=== PATIENT | female | born 1960 | race Two or more races ===

== ENCOUNTER 2025-03-24 09:57 | Outpatient (AMB) | payer MEDICARE, SELFPAY ==
--- NOTE | 2025-03-24 10:09 | XR_ITS ---
Examination: Bilateral knees 2 views Right lateral knee left lateral knee 2 views Bilateral axial knees single view TECHNIQUE: Bilateral AP knees standing single view, bilateral PA knees standing single view flexion Standing right lateral knee left lateral knee 2 views Bilateral axial knees single view total 5 views Date and time: March 24, 2025 1034 hours INDICATIONS: Bilateral knee pain for years. FINDINGS: Advanced narrowing [id number] lateral joint space right knee Significant osteoarthritis right patellofemoral joint and medial joint space Advanced narrowing lateral joint space left knee Moderate to advanced osteoarthritis medial and right patellofemoral joints IMPRESSION: Significant bilateral osteoarthritis, including advanced narrowing [id number] lateral joint space right knee
--- NOTE | 2025-03-24 10:09 | ORTHONT_ITS ---
Vital signs 03/24/25 10:13 Height 1.57 m Height Method Measured Weight 85.417 kg Weight Measurement Method Standing Scale BMI 34.4 BP 116/76 Blood Pressure Source Automatic Cuff Blood Pressure Location Left Upper Arm Position Sitting Respiration 18 Pulse 74 Pulse Source Monitor Temp 97.8 F Temp Source Temporal Artery Scan Pulse Oximetry (%) 96 Oxygen Delivery Method Room Air Med/Allergies Allergies & Medications Allergies ranitidine Allergy (Verified 03/24/25 10:18) Difficulty Breathing Medication Reconciliation alendronate 70 mg tablet 70 mg PO QWEEK 06/23/24 [History Confirmed 03/24/25] meloxicam 7.5 mg tablet 7.5 mg PO QDAY #45 tabs 03/24/25 [Rx Confirmed 03/24/25] Exam Exam Patient is in no acute distress and is cooperative with the examination today. Breathing is nonlabored. In no respiratory distress. Bilateral extremities were evaluated and demonstrates sensation intact to light touch. Palpable pedal pulses are present. No significant edema is present. Bilateral hips were examined. The patient has no pain with log roll of the hips. Internal rotation to 30 degrees and external rotation to 30 degrees is painless. Negative FADIR. The left knee was examined. The left knee is in varus alignment. Range of motion from 0-115 degrees. Knee is stable to varus and valgus as well as AP translation with <5mm. Patient has a negative McMurrays. There is no pain with patellofemoral compression and no crepitus noted. The knee is tender to palpation medially. The right knee was also examined. The right knee is in varus alignment. Range of motion from 0-120 degrees. Knee is stable to varus and valgus as well as AP translation with <5mm. Patient has a negative McMurrays. There is no pain with patellofemoral compression and no crepitus noted. The knee is tender to palpation medially. Assessment and Plan Problem List (1) Degenerative arthritis of knee, bilateral: Status: Acute Plan: Patient is a 64-year-old female with bilateral knee pain and bilateral knee arthritis. We discussed different treatment options. I would like to get weightbearing x-rays. I sent her a prescription for meloxicam. We will see her back after he has weightbearing x-rays Advanced Care Planning Discussion Advance care planning discussed with:: patient Office Procedures GNS Level of Care Nursing/Assessment Patient Status: Initial/New Patient Nursing Assessment/Reassesment: Medication Reconciliation, Update PMH in EMR and Vital Signs Coordination of Care: Complex Care and Chronic Disease 1-5, Education Complex Pt/Fam, Consent,records obtained, informed consent, 1 Ins Authorization, Lab and Imaging orders, Results/Orders obtained and Staff clarify orders Special Needs: Language special needs New Patient Charge New Patient Point Assignment: 1124 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 Intake Visit Data Collection New Patient or Established: New Patient (never been to [facility]) Reason for Visit:: BL KNEE OA Seen by Clinical Staff ONLY (RN/MA): No Position Classification Specialist Required: Yes PCP or OBGYN visit in last 3 months: Yes Hx Now: No Do You Feel Safe at Home: Yes Authorities Contacted: N/A Questionairres Past Medical History Past Medical History Have you ever been diagnosed with any of the following: Neurological Problems Seizures: No Cardiology Problems Congestive Heart Failure: No Respiratory Problems Chronic Obstructive Pulmonary Disease (COPD): No Smoking: No Smoking Cessation Counseling: No Smoking Exposure: No Genital/Urinary Problems Renal Disease: No Musculoskeletal Problems Osteoporosis: Yes Endocrine Problems Diabetes Mellitus Type 1: No Blood Problems Anemia: No Other Problems Blood Transfusions: No Blood Transfusion Reaction: No Anesthesia Reactions: No Chicken Pox: Yes Measles: Yes Mumps: Yes Surgical History Hysterectomy: Yes Subjective Visit Visit for: new patient and knee (BILATERAL) Immunization / Flu Flu Vaccine in the Last 12 Months: Yes Flu Vaccine Exclusion Criteria: Already Received History of Present Illness Chief complaint: Bilateral knee pain Date of injury / onset of symptoms: 2-3 YEARS Patient is a pleasant 64-year-old female with bilateral knee pain worse on the right. She is not taking any anti-inflammatories. Has not any injections. The right knee pain is worse than the left and it is both medially and laterally Personal History Occupation: RETIRED Red flag PMH: none BMI Counceling provided: Yes Pain Pain level (0-10): 5 Pain duration: COMES AND GOES Pain location: inside (medial), outside (lateral) and anterior Pain quality: sharp and aching Pain timing: increases with activity Ambulatory data Ambulatory device: none Treatments Number of previous injections: 0 Improvement with previous injections: No Number of Physical Therapy sessions: 0 Improvement with PT: No Improvement with NSAIDS: no (IBUPROFEN) Review of Systems Review of Systems: All systems negative unless otherwise noted in HPI.
[2025-03-24 10:13] VITALS: BP 116/76; PULSE 74; RESP 18; TEMP 36.6; O2SAT 96; BMI 34.4
== END 2025-03-24 10:14 | disposition home or self-care (01) ==
LOC: HODSRG 09:57
PROVIDERS: PCP Family Medicine; Referring Provider Family Medicine; Supervising Provider Orthopaedic Surgery Adult Reconstructive Orthopaedic Surgery; Visit Provider Orthopaedic Surgery Adult Reconstructive Orthopaedic Surgery
DX: M17.0 Bilateral primary osteoarthritis of knee (principal); M25.562 Pain in left knee; M25.561 Pain in right knee
CPT/HCPCS: 73564; 99204; G0463

== ENCOUNTER 2025-04-26 09:23 | Outpatient (AMB) | payer MEDICARE, SELFPAY ==
--- NOTE | 2025-04-26 09:32 | ORTHONT_ITS ---
Vital signs 04/26/25 09:33 Height 1.57 m Height Method Stated Weight 85.984 kg Weight Measurement Method Standing Scale BMI 34.9 BP 107/71 Blood Pressure Source Automatic Cuff Blood Pressure Location Left Upper Arm Position Sitting Respiration 18 Pulse 73 Pulse Source Monitor Temp 97.4 F Temp Source Temporal Artery Scan Pulse Oximetry (%) 97 Oxygen Delivery Method Room Air Med/Allergies Allergies & Medications Allergies ranitidine Allergy (Verified 04/26/25 09:42) Difficulty Breathing Medication Reconciliation alendronate 70 mg tablet 70 mg PO QWEEK 06/23/24 [History Confirmed 04/26/25] meloxicam 7.5 mg tablet 7.5 mg PO QDAY #45 tabs 03/24/25 [Rx Confirmed 04/26/25] Exam Exam Patient is in no acute distress and is cooperative with the examination today. Breathing is nonlabored. In no respiratory distress. Bilateral extremities were evaluated and demonstrates sensation intact to light touch. Palpable pedal pu lses are present. No significant edema is present. Bilateral hips were examined. The patient has no pain with log roll of the hips. Internal rotation to 30 degrees and external rotation to 30 degrees is painless. Negative FADIR. The left knee was examined. The left knee is in varus alignment. Range of motion from 0-115 degrees. Knee is stable to varus and valgus as well as AP translation with <5mm. Patient has a negative McMurrays. There is no pain with patellofemoral compression and no crepitus noted. The knee is tender to palpation medially. The right knee was also examined. The right knee is in varus alignment. Range of motion from 0-120 degrees. Knee is stable to varus and valgus as well as AP translation with <5mm. Patient has a negative McMurrays. There is no pain with patellofemoral compression and no crepitus noted. The knee is tender to palpation medially. Xrays demonstrate valgus deformity and severe arthritis and laterally. Assessment and Plan Problem List (1) Degenerative arthritis of knee, bilateral: Status: Acute Plan: Patient is a 64-year-old female with bilateral knee pain and bilateral knee arthritis. We discussed different treatment options. I sent her a prescription for meloxicam and she is doing well with this. She would like bilateral knee injections today Recommend knee cortisone injection as patient would like to proceed with conservative treatment at this time. The risks and benefits of the procedure were reviewed with the patient and patient gave verbal consent to continue with the procedure. Procedure: performed by Dr. Muniz Using sterile technique the Right knee was thoroughly prepped with alcohol, and approximately 1 cc of Depo-Medrol 80mg/mL and 4 cc of 0.2% ropivacaine was injected without resistance into the medial tibial femoral joint space. The patient tolerated the procedure. Advanced Care Planning Discussion Advance care planning discussed with:: patient Office Procedures GNS Level of Care Nursing/Assessment Patient Status: Established Patient Nursing Assessment/Reassesment: Medication Reconciliation, Update PMH in EMR and Vital Signs Coordination of Care: Complex Care and Chronic Disease 1-5, Education Complex Pt/Fam, Consent,records obtained, informed consent, Results/Orders obtained and Staff clarify orders Established Patient Charge Established Patient Point Assignment: 95 Established Patient Point Charge: EP Level 3 (80-115) Surgical Proc/IM SQ injection Major Surgical Procedure: Yes (KNEE INJECTION ) Medication Given Medication Given Medication Given: Yes Documented Dose Given: 1 Route: Infiitration Medication Given Medication Given Medication Given: Yes Documented Dose Given: 4 Route: Infiitration Office Meds methylprednisolone acetate 80 mg/mL suspension for injection Performing Provider: Brady Muniz MD Performing Location: [facility] Administered by: Brady Muniz MD on 04/26/25 11:20 Dose Route Admin Location Dispensed Lot Number Expiration Date Pack age [facility] Train Dispatcher 80 mg intra-articular KNEE 1 mL [id number] 01/08/27 [address]-9 [id number] [employer] ropivacaine (PF) 2 mg/mL (0.2 %) injection solution Performing Provider: Brady Muniz MD Performing Location: [facility] Administered by: Brady Muniz MD on 04/26/25 11:20 Dose Route Admin Location Dispensed Lot Number Expiration Date Pack age [facility] Train Dis[employer] 20 mL Infiltration KNEE 20 mL [id number] 09/10/27 23906-450-28 [id number] [facility] Intake Visit Data Collection New Patient or Established: Established Patient (seen at [facility] within 3 years) Reason for Visit:: BL KNEE XRAY/ Seen by Clinical Staff ONLY (RN/MA): No Distribution Supervisor Required: Yes PCP or OBGYN visit in last 3 months: Yes Hx Now: No Do You Feel Safe at Home: Yes Authorities Contacted: N/A Questionairres Past Medical History Past Medical History Have you ever been diagnosed with any of the following: Neurological Problems Seizures: No Cardiology Problems Congestive Heart Failure: No Respiratory Problems Chronic Obstructive Pulmonary Disease (COPD): No Smoking: No Smoking Cessation Counseling: No Smoking Exposure: No Genital/Urinary Problems Renal Disease: No Musculoskeletal Problems Osteoporosis: Yes Endocrine Problems Diabetes Mellitus Type 1: No Blood Problems Anemia: No Other Problems Blood Transfusions: No Blood Transfusion Reaction: No Anesthesia Reactions: No Chicken Pox: Yes Measles: Yes Mumps: Yes Surgical History Hysterectomy: Yes Subjective Visit Visit for: follow up visit, knee (BILATERAL) and x-rays Immunization / Flu Flu Vaccine in the Last 12 Months: Yes Flu Vaccine Exclusion Criteria: Already Received History of Present Illness Chief complaint: Bilateral knee pain Date of injury / onset of symptoms: 2-3 YEARS Patient is a pleasant 64-year-old female with bilateral knee pain worse on the right. She is not taking any anti-inflammatories. Has not any injections. The right knee pain is worse than the left and it is both medially and laterally Personal History Occupation: RETIRED Red flag PMH: none BMI Counceling provided: Yes Pain Pain level (0-10): 5 Pain duration: COMES AND GOES Pain location: inside (medial), outside (lateral) and anterior Pain quality: sharp and aching Pain timing: increases with activity Ambulatory data Ambulatory device: none Treatments Number of previous injections: 0 Improvement with previous injections: No Number of Physical Therapy sessions: 0 Improvement with PT: No Improvement with NSAIDS: no (IBUPROFEN) Review of Systems Review of Systems: All systems negative unless otherwise noted in HPI.
[2025-04-26 09:33] VITALS: BP 107/71; PULSE 73; RESP 18; TEMP 36.3; O2SAT 97; BMI 34.9
== END 2025-04-26 10:05 | disposition home or self-care (01) ==
LOC: HODSRG 09:23
PROVIDERS: PCP Family Medicine; Referring Provider Family Medicine; Supervising Provider Orthopaedic Surgery Adult Reconstructive Orthopaedic Surgery; Visit Provider Orthopaedic Surgery Adult Reconstructive Orthopaedic Surgery
DX: M17.0 Bilateral primary osteoarthritis of knee (principal); M25.561 Pain in right knee; M25.562 Pain in left knee
CPT/HCPCS: 20610; 99213; J1010; J2795; G0463